=== PATIENT | female | born 1970 | race American Indian/Alaskan Native ===

== ENCOUNTER 2016-10-28 21:54 | Emergency (ER) | payer OTHER ==
[2016-10-28 22:46] LABS: Basophils % (Auto) 1.1 % (0.0-1.8); Eosinophils % (Auto) 6.5 % (0.0-4.3); Hematocrit 34.6 % (30.3-42.9); Hemoglobin 11.8 gm/dl (10.1-14.3); Mean Corpuscular HGB Conc 34 % (30-34); Mean Corpuscular Hemoglobin 32 pg (28-32); Mean Corpuscular Volume 94 fl (79-97); Platelet Count 194 K/mm3 (140-440); Red Blood Count 3.67 M/mm3 (3.65-5.03); White Blood Count 7.5 K/mm3 (4.5-11.0)
[2016-10-28 23:07] LABS: Alanine Aminotransferase 15 units/L (7-56); Albumin 3.9 g/dL (3.9-5); Albumin/Globulin Ratio 1.1 %; Alkaline Phosphatase 66 units/L (35-129); Anion Gap 16 mmol/L; Bilirubin,Total 0.2 mg/dL (0.1-1.2); Blood Urea Nitrogen 8 mg/dL (7-17); Calcium 8.9 mg/dL (8.4-10.2); Carbon Dioxide 27 mmol/L (22-30); Chloride 102.1 mmol/L (98-107); Glucose 92 mg/dL (65-100); Lipase 25 units/L (13-60); Potassium 3.9 mmol/L (3.6-5.0); Sodium 141 mmol/L (137-145); Total Protein 7.3 g/dL (6.3-8.2)
[2016-10-29] MEDS ORDERED: TYLENOL PO ONE (01:55)
[2016-10-29 03:08] LABS: Bilirubin,Urine NEG (Negative); Blood,Urine NEG (Negative); Ketones,Urine NEG (Negative); Leukocyte Esterase,Urine NEG (Negative); Mucus,Urine FEW /HPF; Nitrite,Urine NEG (Negative); Protein,Urine <15 mg/dL mg/dL (Negative)
[2016-10-29] MEDS ORDERED: MORPHINE IV ONE ×2 (09:22→11:37)
--- NOTE | 2016-10-29 09:25 | Emergency Department Report ---
ED Abdominal Pain HPI - General Chief Complaint: Abdominal Pain Stated Complaint: ABD PAIN Time Seen by Provider: 10/29/16 09:11 Source: patient Mode of arrival: Ambulatory Limitations: No Limitations - History of Present Illness Initial Comments: 46-year-old female presents to the emergency department complaining of abdominal pain. Patient states that for the past 3 days she has had constant, aching lower abdominal pain. Pain is all across her lower abdomen. She denies radiation of the pain. She also denies associated fever, nausea, vomiting, or diarrhea. There are no other complaints. MD Complaint: abdominal pain -: Gradual, days(s) (3) Location: LLQ, RLQ, suprapubic Radiation: none Migration to: no migration Severity: moderate Severity scale (0 -10): 6 Quality: aching Consistency: constant Improves With: nothing Worsens With: nothing Associated Symptoms: denies other symptoms - Related Data Home Medications Medication Instructions Recorded Confirmed Last Taken Carvedilol [Coreg] 3.125 tab PO BID 12/30/15 12/30/15 Unknown Escitalopram [Lexapro] 10 mg PO DAILY 12/30/15 12/30/15 Unknown Levocetirizine Dihydrochloride 5 mg PO DAILY 12/30/15 12/30/15 Unknown [Xyzal] Valsartan/Hydrochlorothiazide 1 tab PO QDAY 12/30/15 12/30/15 Unknown [Diovan Hct 160-25 mg] Previous Rx's Medication Instructions Recorded Last Taken Type Amoxicillin [Amoxicillin TAB] 875 mg PO BID #20 tablet 12/31/15 Unknown Rx Ofloxacin 0.3% [Floxin Otic] 5 drop OT BID #1 bottle 12/31/15 Unknown Rx HYDROcodone/APAP 5-325 [[place] 1 each PO Q6HR PRN #20 tablet 10/29/16 Unknown Rx 5/325] Allergies Allergy/AdvReac Type Severity Reaction Status Date / Time No Known Allergies Allergy Verified 11/08/14 15:13 ED Review of Systems ROS: Stated complaint: ABD PAIN Other details as noted in HPI Comment: All other systems reviewed and negative Gastrointestinal: abdominal pain ED Past Medical Hx - Past Medical History Previous Medical History?: Yes Hx Hypertension: Yes Hx Psychiatric Treatment: Yes (ANXIETY/DEPRESSION) - Surgical History Past Surgical History?: No - Family History Family history: no significant - Social History Smoking Status: Never Smoker Substance Use Type: Alcohol - Medications Home Medications: Home Medications Medication Instructions Recorded Confirmed Last Taken Type Carvedilol [Coreg] 3.125 tab PO BID 12/30/15 12/30/15 Unknown History Escitalopram [Lexapro] 10 mg PO DAILY 12/30/15 12/30/15 Unknown History Levocetirizine Dihydrochloride 5 mg PO DAILY 12/30/15 12/30/15 Unknown History [Xyzal] Valsartan/Hydrochlorothiazide 1 tab PO QDAY 12/30/15 12/30/15 Unknown History [Diovan Hct 160-25 mg] Amoxicillin [Amoxicillin TAB] 875 mg PO BID #20 tablet 12/31/15 Unknown Rx Ofloxacin 0.3% [Floxin Otic] 5 drop OT BID #1 bottle 12/31/15 Unknown Rx HYDROcodone/APAP 5-325 [[place] 1 each PO Q6HR PRN #20 tablet 10/29/16 Unknown Rx 5/325] ED Physical Exam - General Limitations: No Limitations General appearance: alert, in no apparent distress - Head Head exam: Present: atraumatic, normocephalic - Eye Eye exam: Present: normal appearance, PERRL, EOMI - ENT ENT exam: Present: normal exam, normal orophraynx, mucous membranes moist - Neck Neck exam: Present: normal inspection, full ROM. Absent: tenderness - Respiratory Respiratory exam: Present: normal lung sounds bilaterally. Absent: respiratory distress - Cardiovascular Cardiovascular Exam: Present: regular rate, normal rhythm, normal heart sounds - GI/Abdominal GI/Abdominal exam: Present: soft, tenderness (mild tenderness to palpation across the lower abdomen including the suprapubic region, left lower quadrant, and right lower quadrant), normal bowel sounds. Absent: distended, guarding, rebound - Extremities Exam Extremities exam: Present: normal inspection, full ROM. Absent: tenderness - Back Exam Back exam: Present: normal inspection, full ROM. Absent: tenderness - Neurological Exam Neurological exam: Present: alert, oriented X3. Absent: motor sensory deficit - Skin Skin exam: Present: warm, dry, intact ED Course Vital Signs 10/28/16 10/29/16 10/29/16 22:07 04:24 09:24 Temperature 98.5 F 98.2 F Pulse Rate 101 H 90 Respiratory 18 18 Rate Blood Pressure 166/111 153/107 Blood Pressure 164/112 [Left] O2 Sat by Pulse 100 100 100 Oximetry 10/29/16 10/29/16 10/29/16 09:30 09:40 10:22 Temperature Pulse Rate Respiratory Rate Blood Pressure 153/107 153/107 Blood Pressure [Left] O2 Sat by Pulse 100 99 95 Oximetry 10/29/16 10/29/16 10/29/16 10:30 10:34 10:40 Temperature Pulse Rate Respiratory 18 Rate Blood Pressure 144/102 144/102 Blood Pressure [Left] O2 Sat by Pulse 100 100 98 Oximetry 10/29/16 10/29/16 10/29/16 10:50 11:00 11:10 Temperature Pulse Rate Respiratory Rate Blood Pressure 153/107 147/92 147/92 Blood Pressure [Left] O2 Sat by Pulse 100 100 100 Oximetry 10/29/16 10/29/16 10/29/16 11:20 11:30 12:18 Temperature Pulse Rate Respiratory Rate Blood Pressure 147/92 147/92 Blood Pressure [Left] O2 Sat by Pulse 100 100 100 Oximetry - Reevaluation(s) Reevaluation #1: 10/29/16 11:19 Lab results reviewed and discussed with the patient. Patient reports her pain is markedly improved with medication. CT results also discussed with the patient. Per radiology request, obtaining pelvic ultrasound. ED Medical Decision Making - Lab Data Result diagrams: 10/28/16 22:27 10/28/16 22:27 - Radiology Data Radiology results: report reviewed, image reviewed CT of the abdomen and pelvis revealing masslike lesion in the cul-de-sac. This could possibly represent an enlarged right ovary or ovarian mass. Ultrasound or pelvic MRI is recommended. Pelvic ultrasound reveals the mass to be grossly associated with the posterior wall of the uterus, possibly representing a pedunculated fibroid. The ovaries appear unremarkable. - Medical Decision Making Lab and imaging results reviewed and discussed with the patient. I have spoken with Dr. Rothman, JUDGE. Patient will be discharged home to follow-up in the outpatient clinic. - Differential Diagnosis abdominal pain, UTI, diverticulitis, ovarian cyst Critical care attestation.: If time is entered above; I have spent that time in minutes in the direct care of this critically ill patient, excluding procedure time. ED Disposition Clinical Impression: Abdominal pain Qualifiers: Abdominal location: lower abdomen, unspecified Qualified Code(s): R10.30 - Lower abdominal pain, unspecified Uterine fibroid Qualifiers: Uterine leiomyoma location: subserosal Qualified Code(s): D25.2 - Subserosal leiomyoma of uterus Disposition: DISCHARGED TO HOME OR SELFCARE Is pt being admited?: No Condition: Stable Instructions: Abdominal Pain (ED), Uterine Fibroids (ED) Prescriptions: HYDROcodone/APAP 5-325 [[place] 5/325] 1 each PO Q6HR PRN #20 tablet PRN Reason: Pain Referrals: LAURE ROTHMAN MD [Staff Physician] - 3-5 Days Time of Disposition: 13:08
[2016-10-29] MEDS ORDERED: ZOFRAN ONE (09:34)
[2016-10-29] MEDS ORDERED: ZOFRAN IV ONE (09:47)
[2016-10-29] MEDS ORDERED: NACL ONE (09:47)
[2016-10-29] MEDS ORDERED: PROTONIX PO ONE (10:49)
[2016-10-29] MEDS ORDERED: COREG ONE (10:49)
[2016-10-29] MEDS ORDERED: NEURONTIN ONE (10:49)
--- NOTE | 2016-10-29 11:00 | Cat Scan Report ---
CT SCAN OF THE ABDOMEN AND PELVIS WITH CONTRAST: HISTORY: Lower abdominal pain. TECHNIQUE: Helical CT in 1.25mm intervals following IV contrast. Sagittal and coronal reconstructions. FINDINGS: No comparison. There is slightly heterogeneous masslike lesion between the uterus and rectum measuring 7.6 x 6.1 x 5.5 cm. This may represent an enlarged right ovary. Ovarian mass or edematous ovary should be considered. The uterus and left ovary are grossly normal. There is mild pelvic fluid but no abscess or free air. The liver is normal in size and is without focal defect. No gallstones or biliary dilatation are noted. The spleen and pancreas demonstrate a normal size and attenuation with no evidence of abnormal mass. The kidneys are normal in size and position with no evidence of hydronephrosis or mass. The adrenal glands are normal. There is no intestinal obstruction or ascites. Normal appendix. The abdominal aorta is normal. No adenopathy is identified. The bladder is normal. IMPRESSION: Mass in the cul-de-sac as outlined above. I suspect this represents a right ovarian mass or an enlarged right ovary. Please correlate with the patient. Pelvic ultrasound or MRI pelvis with contrast may prove useful.
[2016-10-29] MEDS ORDERED: MORPHINE ONE (11:33)
--- NOTE | 2016-10-29 12:39 | Ultrasound Report ---
ULTRASOUND PELVIC COMPLETE ULTRASOUND TRANSVAGINAL HISTORY: Pelvic mass, ovarian mass. TECHNIQUE: Transabdominal and transvaginal ultrasound with color and spectral doppler interrogation. FINDINGS: The CT abdomen pelvis with contrast performed earlier today was reviewed. The uterus is anteverted and measures 9.5 x 5.3 x 5.0 cm. The endometrial stripe measures 5 mm. Both ovaries are visualized and unremarkable. The right ovary measures 3.1 x 1.4 x 1.7 cm. The left ovary measures 3.4 x 2.3 x 2.3 cm. The previously described mass in the cul-de-sac does not appear to be ovarian in origin. The mass has an intimate association with the posterior wall uterus. I suppose this could represent a pedunculated fibroid. Other etiologies are not entirely excluded. IMPRESSION: Heterogeneous mass in the cul-de-sac as outlined above. This does not appear to be ovarian in origin. This may represent a pedunculated fibroid. If further evaluation is needed, MRI pelvis with contrast is recommended.
[2016-10-29 13:35] VITALS: BP 140/92
== END 2016-10-29 13:36 | disposition home or self-care (01) ==
LOC: ED 21:54
DX: R10.30 Lower abdominal pain, unspecified (principal); D25.2 Subserosal leiomyoma of uterus; I10 Essential (primary) hypertension
CPT/HCPCS: 36415; 74177; 76830; 76856; 80053; 81001; 81025; 83690; 85025; 96374; 96375; 96376; 99284; J2270; J2405; Q9967

== ENCOUNTER 2016-12-14 18:52 | Emergency (ER) | payer OTHER ==
[2016-12-14] MEDS ORDERED: CATAPRES PO ONE (20:42)
[2016-12-14] MEDS ORDERED: TYLENOL ONE (20:45)
[2016-12-14] MEDS ORDERED: TYLENOL PO ONE (20:49)
[2016-12-15 01:51] VITALS: BP 158/86
[2016-12-15] MEDS ORDERED: NORCO 5/325 PO ONE (02:15)
--- NOTE | 2016-12-15 03:21 | Cat Scan Report ---
FINAL REPORT EXAM: CT HEAD/BRAIN WO CON HISTORY: headache, elevated BP TECHNIQUE: Noncontrast CT axial images of the brain. PRIORS: 08 November 2014. FINDINGS: No parenchymal mass, mass effect, hemorrhage, midline shift or hydrocephalus. No evidence of acute cortical infarct. No abnormal, extra-axial fluid or air collection. Osseous calvarium grossly intact. Mucosal thickening in the ethmoid sinuses. IMPRESSION: 1. No acute intracranial findings. 2. Ethmoid sinus disease.
--- NOTE | 2016-12-15 04:02 | Emergency Department Report ---
ED Headache HPI - General Chief Complaint: Headache Stated Complaint: HBP/MIGRAINE/NAUSEA Source: patient, RN notes reviewed Exam Limitations: no limitations - History of Present Illness Initial Comments: 46 year old female presents to ED with elevated blood pressure and headache x1 day. patient states she is on blood pressure medication that is being adjusted by her PCP. patient is stable, neurologically intact and in no acute distress. patient denies chest pain, SOB. Timing/Duration: 24 hours, decreasing Quality: moderate, constant, throbbing Head Injury Location: temporal, parietal Recent Head Trauma: no recent headache/trauma Associated Symptoms: nasal congestion. denies: confusion, fatigue, facial pain , fever/chills, loss of consciousness, nasal drainage, numbness in legs/feet, stiff neck, vision changes, weakness Allergies/Adverse Reactions: Allergies No Known Allergies Allergy (Verified 11/08/14 15:13) Home Medications: Ambulatory Orders Carvedilol [Coreg] 3.125 tab PO BID 12/30/15 Escitalopram [Lexapro] 10 mg PO DAILY 12/30/15 Levocetirizine Dihydrochloride [Xyzal] 5 mg PO DAILY 12/30/15 Valsartan/Hydrochlorothiazide [Diovan Hct 160-25 mg] 1 tab PO QDAY 12/30/15 Amoxicillin [Amoxicillin TAB] 875 mg PO BID #20 tablet 12/31/15 Ofloxacin 0.3% [Floxin Otic] 5 drop OT BID #1 bottle 12/31/15 HYDROcodone/APAP 5-325 [[place] 5/325] 1 each PO Q6HR PRN #20 tablet 10/29/16 Azithromycin [Zithromax Z-IRWIN] 250 mg PO QDAY #6 tablet 12/15/16 ED Review of Systems ROS: Stated complaint: HBP/MIGRAINE/NAUSEA Other details as noted in HPI Constitutional: denies: chills, fever Eyes: denies: eye pain, eye discharge, vision change ENT: denies: ear pain, throat pain Respiratory: denies: cough, shortness of breath, wheezing Cardiovascular: denies: chest pain, palpitations, syncope Endocrine: no symptoms reported Gastrointestinal: denies: abdominal pain, nausea, diarrhea Genitourinary: denies: urgency, dysuria, discharge Musculoskeletal: denies: back pain, joint swelling, arthralgia Skin: denies: rash, lesions Neurological: headache, other (dizziness). denies: weakness, numbness, paresthesias, confusion, abnormal gait Psychiatric: denies: anxiety, depression Hematological/Lymphatic: denies: easy bleeding, easy bruising ED Past Medical Hx - Past Medical History Previous Medical History?: Yes Hx Hypertension: Yes Hx Psychiatric Treatment: Yes (ANXIETY/DEPRESSION) Additional medical history: Anxiety - Surgical History Past Surgical History?: No - Social History Smoking Status: Never Smoker Substance Use Type: None - Medications Home Medications: Home Medications Medication Instructions Recorded Confirmed Last Taken Type Carvedilol [Coreg] 3.125 tab PO BID 12/30/15 12/30/15 Unknown History Escitalopram [Lexapro] 10 mg PO DAILY 12/30/15 12/30/15 Unknown History Levocetirizine Dihydrochloride 5 mg PO DAILY 12/30/15 12/30/15 Unknown History [Xyzal] Valsartan/Hydrochlorothiazide 1 tab PO QDAY 12/30/15 12/30/15 Unknown History [Diovan Hct 160-25 mg] Amoxicillin [Amoxicillin TAB] 875 mg PO BID #20 tablet 12/31/15 Unknown Rx Ofloxacin 0.3% [Floxin Otic] 5 drop OT BID #1 bottle 12/31/15 Unknown Rx HYDROcodone/APAP 5-325 [[place] 1 each PO Q6HR PRN #20 tablet 10/29/16 Unknown Rx 5/325] Azithromycin [Zithromax Z-IRWIN] 250 mg PO QDAY #6 tablet 12/15/16 Unknown Rx ED Physical Exam - General Limitations: No Limitations General appearance: alert, in no apparent distress - Head Head exam: Present: atraumatic, normocephalic - Eye Eye exam: Present: normal appearance - ENT ENT exam: Present: normal exam, mucous membranes moist, TM's normal bilaterally - Neck Neck exam: Present: normal inspection, full ROM - Respiratory Respiratory exam: Present: normal lung sounds bilaterally. Absent: respiratory distress - Cardiovascular Cardiovascular Exam: Present: regular rate, normal rhythm. Absent: systolic murmur, diastolic murmur, rubs, gallop - GI/Abdominal GI/Abdominal exam: Present: soft, normal bowel sounds. Absent: distended, tenderness, guarding - Extremities Exam Extremities exam: Present: normal inspection, full ROM - Back Exam Back exam: Present: normal inspection, full ROM - Neurological Exam Neurological exam: Present: alert, oriented X3, normal gait - Expanded Neurological Exam Expanded Neurological exam: Absent: innattentive Patient oriented to: Present: person, place, time Speech: Present: fluid speech Cranial nerves: EOM's Intact: Normal, Nystagmus: Normal Cerebellar function: Finger to Nose: Normal Upper motor neuron: Pronator Drift: Normal Sensory exam: Upper Extremity Light Touch: Normal, Lower Extremity Light Touch: Normal Motor strength exam: RUE: 5, LUE: 5, RLE: 5, LLE: 5 DTR: bicep (R): 2+, bicep (L): 2+, knee (R): 2+, knee (L): 2+ Best Eye Response ([place]): (4) open spontaneously Best Motor Response ([place]): (6) obeys commands Best Verbal Response ([place]): (5) oriented [place] Total: 15 - Psychiatric Psychiatric exam: Present: normal affect, normal mood - Skin Skin exam: Present: warm, dry, intact, normal color. Absent: rash ED Course Vital Signs 12/14/16 12/14/16 12/14/16 20:23 20:48 21:04 Temperature 98.5 F Pulse Rate 68 78 Respiratory 18 18 Rate Blood Pressure 188/116 188/116 Blood Pressure [Left] O2 Sat by Pulse 100 Oximetry 12/15/16 01:50 Temperature 97.9 F Pulse Rate 68 Respiratory 18 Rate Blood Pressure Blood Pressure 158/86 [Left] O2 Sat by Pulse 97 Oximetry ED Medical Decision Making - Lab Data Vital Signs 12/14/16 12/14/16 12/14/16 20:23 20:48 21:04 Temperature 98.5 F Pulse Rate 68 78 Respiratory 18 18 Rate Blood Pressure 188/116 188/116 Blood Pressure [Left] O2 Sat by Pulse 100 Oximetry 12/15/16 01:50 Temperature 97.9 F Pulse Rate 68 Respiratory 18 Rate Blood Pressure Blood Pressure 158/86 [Left] O2 Sat by Pulse 97 Oximetry - Radiology Data Radiology results: report reviewed CT brain wo No acute intracranial findings. Ethmoid sinus disease. - Medical Decision Making 46 year old female presents to ED with elevated blood pressure and headache. patient has negative CT scan of brain and has decreased headache after pain management and management of BP. patient will be discharged to follow up with PCP within 1-2 days. patient will be given PO antibiotics for sinus disease noticed on CT brain wo. patient denies Chest pain, SOB, abdominal pain, vomiting. Critical care attestation.: If time is entered above; I have spent that time in minutes in the direct care of this critically ill patient, excluding procedure time. ED Disposition Clinical Impression: HTN (hypertension), benign Sinusitis Qualifiers: Sinusitis location: ethmoidal Chronicity: unspecified Qualified Code(s): J32.2 - Chronic ethmoidal sinusitis Disposition: DISCHARGED TO HOME OR SELFCARE Is pt being admited?: No Does the pt Need Aspirin: No Condition: Stable Instructions: Hypertension (ED) Prescriptions: Azithromycin [Zithromax Z-IRWIN] 250 mg PO QDAY #6 tablet Referrals: PRIMARY CARE, [Primary Care Provider] - 3-5 Days Forms: Work/School Release Form(ED)
== END 2016-12-15 03:38 | disposition home or self-care (01) ==
LOC: ED 18:52
DX: I10 Essential (primary) hypertension (principal); J32.2 Chronic ethmoidal sinusitis; F32.9 Major depressive disorder, single episode, unspecified; F41.9 Anxiety disorder, unspecified
CPT/HCPCS: 70450; 81025

== ENCOUNTER 2017-12-25 11:27 | Emergency (ER) | payer OTHER ==
[2017-12-25 11:36] VITALS: BP 159/100
--- NOTE | 2017-12-25 15:46 | Emergency Department Report ---
Blank Doc - Documentation Documentation: 47-year-old female with no significant past medical history she came in complaining of low back pain after fall. Patient is not on any blood thinners. Patient did not hit her head. She denies any neck pain. Patient is under no acute distress. Patient is relaxing in bed. P: CT scan of abdomen and low back.
[2017-12-25] MEDS ORDERED: TYLENOL ONE (16:14)
--- NOTE | 2017-12-25 16:33 | Cat Scan Report ---
FINAL REPORT EXAM: CT ABDOMEN PELVIS WO CON HISTORY: fall, right sided flank pain TECHNIQUE: CT examination of the ABDOMEN without IV contrast CT examination of the PELVIS without IV contrast PRIORS: 10/29/2016 FINDINGS: Normal noncontrast appearance of the liver, contracted gallbladder, adrenals, pancreas, and spleen. Normal caliber abdominal aorta and IVC. Normal-appearing kidneys without mass, hydronephrosis, or calculus. Ureters obscured by adjacent anatomy. Proximal ureters and renal pelvis do not appear distended. Very small fat containing umbilical hernia. No retroperitoneal adenopathy. No evidence of mesenteric mass. Normal-appearing stomach and duodenum. No small bowel distention in the abdomen and pelvis. Nonspecific slight pelvic cul-de-sac free fluid may be physiologic or reactive. Normal-appearing urinary bladder and rectum. Slight prominence of the uterus with suggestion of posterior superior 4.8 cm nodule may reflect fibroid changes. No definite adnexal abnormality. Suggestion of developmental incomplete rotation with right-sided small-bowel and left-sided colon. Normal-appearing cecum, terminal ileum, and appendix are positioned in the pelvic midline anteriorly. Slight degenerative change in the regional skeleton. Nondisplaced right transverse process fracture of L1 and L2. Faint linear lucency is suggestive of nondisplaced fracture in the posteromedial right 12th rib. IMPRESSION: New acute appearing fractures of the right medial 12th rib and right transverse processes of L1 and L2 Nodular slightly enlarged uterus may reflect fibroid changes with dominant lesion measuring 4.8 cm Nonspecific slight pelvic cul-de-sac free fluid may be physiologic or reactive Suggestion of developmental incomplete rotation with right-sided small intestine and left-sided colon
--- NOTE | 2017-12-25 16:39 | Cat Scan Report ---
FINAL REPORT EXAM: CT LUMBAR SPINE WO CON HISTORY: fall TECHNIQUE: CT examination of the lumbar spine without IV contrast PRIORS: AP CT 12/25/2017 FINDINGS: Acute nondisplaced fracture of the right transverse process of L1 and L2. On these images, the right 12th rib appears intact. Vertebral compression fracture: None Spondylolysis: None Anterolisthesis: None Retrolisthesis: None Disc narrowing: None Soft tissue windows suggest: Diffuse disc bulge: None visible Focal disc protrusion: None visible Central canal stenosis: None visible Neural foraminal stenosis: None visible Degenerative change: Slight at the lower facet joints IMPRESSION: Acute nondisplaced fractures of the right L1 and L2 transverse processes
[2017-12-25] MEDS ORDERED: NORCO 10/325 PO ONE (17:47)
--- NOTE | 2017-12-25 17:53 | Emergency Department Report ---
ED Back Pain/Injury HPI - General Chief Complaint: Back Pain/Injury Stated Complaint: BACK PAIN Time Seen by Provider: 12/25/17 15:18 Source: patient Limitations: No Limitations - History of Present Illness Initial Comments: This is a 47-year-old -[place] female presents with right flank pain from a fall night. Patient reports falling down hardwood stairs at home indicating a couple of this stairs on the way down. She has been applying heat to area with no improvement of symptoms. She reports she is currently on medical leave from work and didn't want to follow up in the ER but pain increased. Patient reports pain as sharp stabbing pain that is constant and 10 out of 10 on pain scale. Pain is primarily in the right immediate lower back. Denies numbness or tingling, change in bowel avoiding pattern, difficulty breathing, shortness of breath, chest pain, nausea or vomiting, and swelling. MD Complaint: back pain (right immediate lower back) -: days(s) (2 days ago) Similar Symptoms Previously: No Place: home Radiation: none Severity: severe Severity scale (0 -10): 10 Quality: sharp, aching Consistency: constant Improves With: none Worsens With: movement, walking Context: fall (fell down stairs at home) Associated Symptoms: difficulty walking. denies: confusion, weakness, chest pain, numbness, cough, difficulty urinating, diaphoresis, incontinence, fever/ chills, constipation, headaches, abdominal pain, loss of appetite, malaise, nausea/vomiting, rash, seizure, shortness of breath, syncope Treatments Prior to Arrival: heat therapy, NSAIDS - Related Data Home Medications Medication Instructions Recorded Confirmed Last Taken Carvedilol [Coreg] 3.125 tab PO BID 12/30/15 12/30/15 Unknown Escitalopram [Lexapro] 10 mg PO DAILY 12/30/15 12/30/15 Unknown Levocetirizine Dihydrochloride 5 mg PO DAILY 12/30/15 12/30/15 Unknown [Xyzal] Valsartan/Hydrochlorothiazide 1 tab PO QDAY 12/30/15 12/30/15 Unknown [Diovan Hct 160-25 mg] Previous Rx's Medication Instructions Recorded Last Taken Type Amoxicillin [Amoxicillin TAB] 875 mg PO BID #20 tablet 12/31/15 Unknown Rx Ofloxacin 0.3% [Floxin Otic] 5 drop OT BID #1 bottle 12/31/15 Unknown Rx HYDROcodone/APAP 5-325 [Lerna 1 each PO Q6HR PRN #20 tablet 10/29/16 Unknown Rx 5/325] Azithromycin [Zithromax Z-IRWIN] 250 mg PO QDAY #6 tablet 12/15/16 Unknown Rx Tizanidine HCl [Zanaflex] 4 mg PO TID PRN #20 capsule 12/25/17 Unknown Rx oxyCODONE /ACETAMINOPHEN [Percocet 1 tab PO Q6HR PRN #15 tablet 12/25/17 Unknown Rx 5/325] Allergies Allergy/AdvReac Type Severity Reaction Status Date / Time No Known Allergies Allergy Verified 12/25/17 11:34 ED Review of Systems ROS: Stated complaint: BACK PAIN Other details as noted in HPI Constitutional: denies: chills, fever Respiratory: denies: cough, shortness of breath, wheezing Cardiovascular: denies: chest pain, palpitations Gastrointestinal: denies: abdominal pain, nausea, diarrhea Musculoskeletal: back pain (management low back and right side). denies: joint swelling, arthralgia Skin: lesions (abrasions right mid back). denies: rash Neurological: denies: headache, weakness, paresthesias Psychiatric: denies: anxiety, depression ED Past Medical Hx - Past Medical History Anxiety Family history: no significant family history ED Back Pain Physical Exam - Exam General: Vital signs noted. No distress. Alert and acting appropriately. Back/Abdomen: Yes Perilumbar Tenderness (midline), Yes Sacroiliac Tenderness ( on right with deep palpation), Yes Flank Tenderness (right side), No Abdominal Tenderness, No Perithoracic Tenderness, No Straight Leg Raise Pain Neuro: Yes Normal Sensation, Yes Normal DTR's, Yes Normal Gait, No Motor Weakness ED Course Vital Signs 12/25/17 11:34 Temperature 98.4 F Pulse Rate 80 Respiratory 16 Rate Blood Pressure 159/100 O2 Sat by Pulse 100 Oximetry Ed Back Pain Tests - Tests Tests: Abnormal X Rays ED Medical Decision Making - Radiology Data Radiology results: report reviewed - Medical Decision Making This is a 47 y.o. female presents with knee pain and right side from fall 2 days ago at home. Denies LOC, chest pain, abdominal pain, SOB, and numbness and tingling. Patient was examined by me and Dr. Helm. Vital stable and in no acute distress. Patient given Percocet 10/325 mg by mouth once in the ER. CT of abdomen and pelvis, CT of L-spine read by radiologist. New acute appearing fractures of the right medial 12th rib and right transverse process L1 and L2. Acute nondisplaced fractures of the right L1 and L2 transverse process. Consulted with Dr. Helm who consulted with Dr. Marshall, Orthopedic [facility] at [facility]. Patient informed of results. I offered admission to the patient to control pain but patient refused admission. Discussed the risk and benefits. Start Percocet 5/325 and Zanaflex for pain. Patient discharged home in stable condition. Follow up with orthopedic surgery. Patient referred to Dr. Green, [facility], and [facility]. Critical care attestation.: If time is entered above; I have spent that time in minutes in the direct care of this critically ill patient, excluding procedure time. ED Disposition Clinical Impression: Fracture of lumbar spine Qualifiers: Encounter type: initial encounter Lumbar vertebra fracture level: L1 Fracture type: closed Fracture morphology: other fracture Qualified Code(s): S32.018A - Other fracture of first lumbar vertebra, initial encounter for closed fracture Rib fracture Qualifiers: Encounter type: initial encounter Rib fracture type: single rib Fracture type: closed Laterality: right Qualified Code(s): S22.31XA - Fracture of one rib, right side, initial encounter for closed fracture Disposition: DC-01 TO HOME OR SELFCARE Is pt being admited?: No Does the pt Need Aspirin: No Condition: Stable Instructions: Rib Fracture (ED), Thoracolumbar Fracture (ED) Additional Instructions: Rest Use ice or heat on affected area for 20 minutes and off for 2 hours. Take pain medication as needed for pain. Don't drive or operate heavy machinery while taking muscle relaxers because they may cause drowsiness. Follow up with Primary Care Provider in 2-3 days. Follow-up with orthopedic surgery in the next 24-72 hours. Prescriptions: oxyCODONE /ACETAMINOPHEN [Percocet 5/325] 1 tab PO Q6HR PRN #15 tablet PRN Reason: Pain Tizanidine HCl [Zanaflex] 4 mg PO TID PRN #20 capsule PRN Reason: Muscle Spasm Referrals: MARILUZ LEONARDO MD [Primary Care Provider] - 3-5 Days JEWELL GREEN MD [Staff Physician] - 3-5 Days [facility] [Provider Group] - 3-5 Days [facility] [Provider Group] - 3-5 Days Time of Disposition: 18:58 Print Language: PERSIAN
[2017-12-25] MEDS ORDERED: PERCOCET 5/325 ONE (18:45)
[2017-12-25] MEDS ORDERED: PERCOCET 5/325 PO ONE (18:46)
== END 2017-12-25 19:06 | disposition home or self-care (01) ==
LOC: ED 11:27
DX: S32.018A Other fracture of first lumbar vertebra, initial encounter for closed fracture (principal); S22.31XA Fracture of one rib, right side, initial encounter for closed fracture; W10.8XXA Fall (on) (from) other stairs and steps, initial encounter; Y93.89 Activity, other specified; Y92.098 Other place in other non-institutional residence as the place of occurrence of the external cause; Y99.8 Other external cause status
CPT/HCPCS: 72131; 74176